=== PATIENT | male | born 1970 | race African-American/Black ===

== ENCOUNTER → 2021-06-13 10:27 | Outpatient (BNVA) | payer SELFPAY | DX: Z01.84 Encounter for antibody response examination (principal) | CPT/HCPCS: 90710 ==

== ENCOUNTER 2024-01-19 13:29 | Emergency (ER) | payer OTHER, SELFPAY ==
--- NOTE | ~2024-01-19 | XR_ITS ---
EXAMINATION: XR CHEST CLINICAL INFORMATION: Right-sided chest pain COMPARISON: None available. TECHNIQUE: 2 views of the chest were obtained. FINDINGS: No significant abnormality is noted involving the heart, lungs, mediastinum, bony thorax or soft tissues. XR/XR chest 2V IMPRESSION: Unremarkable examination. Electronically signed by: Jaleesa Bryant MD 01/19/2024 01:54 PM EDT RP
--- NOTE | 2024-01-19 13:34 | ECG_ITS ---
Test Reason : CHEST PAIN Blood Pressure : / mmHG Vent. Rate : 067 BPM Atrial Rate : 067 BPM P-R Int : 142 ms QRS Dur : 092 ms QT Int : 388 ms P-R-T Axes : 057 009 016 degrees QTc Int : 409 ms Normal sinus rhythm Normal ECG No previous ECGs available Referred By: Sandra Paz Electronically Signed By:CELESTE COELHO
[2024-01-19 13:41] VITALS: BP 163/93; PULSE 67; RESP 18; TEMP 37; O2SAT 97; BMI 33.6
--- NOTE | 2024-01-19 13:44 | ED.CHESTPAIN ---
HPI - Chest Pain General Chief Complaint: Chest Pain Stated Complaint: R chest pain/R arm pain Time Seen by Provider: 01/19/24 16:53 Source: patient Mode of arrival: ambulatory Limitations: no limitations History of Present Illness HPI narrative: Patient is a 53-year-old male who presents emergency department for evaluation of chest pain. He reports onset approximately 72 hours ago. He states that he was sitting up a sol for his daughter including heavy lifting with Tables and putting up a tent. The pain has been constant to the right anterior chest with varying intensity. At times the pain radiates to his right lateral neck and down the right arm with a tingling sensation to the arm. He denies associated shortness of breath, difficulty breathing, dizziness, lightheadedness, headache. He does admit to irregular strength training exercise routine including the chest. He has taken Advil on 1 occasion without much improvement. He was recently diagnosed with hypertension and October of 2023, he is unaware of where his most recent blood pressure readings as he has not been taking it at home and has yet to have a follow-up since starting the medication. Related Data Previous Rx's ?Medication ?Instructions ?Recorded lisinopril 20 mg tablet 20 mg PO DAILY #30 tabs 01/19/24 Allergies Allergy/AdvReac Type Severity Reaction Status Date / Time No Known Allergies Allergy Verified 01/19/24 13:45 Review of Systems Review of Systems: Yes all other systems are reviewed and are negative [facility] Past Medical History Attestation statement: The following information was validated with the patient. Source: old records reviewed Social History Social History Smoked in Last 30 Days: No Use of substances other than those prescribed or required for medical reasons: No Advance Directives: No Advance Directives Information Provided: Yes Do you have a plan to hurt others: No Plan Physical Exam Vital Signs: Vital Signs: Last Vital Signs Temp 98.0 F 01/19/24 17:55 Pulse 55 01/19/24 17:55 Resp 16 01/19/24 17:55 BP 183/100 H 01/19/24 17:55 Pulse Ox 96 01/19/24 17:55 O2 Del Method Room Air 01/19/24 17:55 BMI result Body Mass Index 33.6 Appearance: Alert.?Oriented to person, place and time. No acute distress.?Normal affect. Eyes: Pupils equal, round and reactive to light.? ENT: Pharynx normal.?? Neck: Normal inspection.? Neck supple.?? CVS: Heart sounds normal. Normal heart rate and rhythm.? Pulses normal.?? Respiratory: No respiratory distress.? Lung sounds clear to auscultation bilaterally?? Abdomen: Soft and non-tender. Normoactive bowel sounds. No pulsatile mass.?? Skin: Skin warm and dry.? Normal skin color.? ? Extremities: No lower extremity edema.? Neuro: Moves all extremities spontaneously. Sensation intact bilaterally. No focal neuro deficits. Ambulates with normal steady gait. Course Course Course Narrative: This is a Rapid Medical Examination (RME) performed by Manjula Paz PA-C in triage. Full HPI, ROS, assessment and treatment plan per primary provider in the Main ED. 53 yo male here for eval of constant right sided chest pain x4 days, shooting pain radiating to right neck and down right arm. girlfriend encouraged him to come in today. no trauma/ injury. no hx of similar + RRR. well appearing, not diaphoretic. Plan: ekg, cxr, labs Reevaluation(s) Reevaluation #1: High sensitive troponin elevated 45.3, has already received aspirin. Pending delta troponin. EKG without acute ischemic findings. Reevaluation #2: Delta troponin is flat, 47.4. I reviewed this case with ED attending Dr. Gallagher who agrees this elevation is likely secondary to uncontrolled hypertension. Suspect this is less likely ACS given duration of symptoms, no acute ischemic changes. Plan to increase patient's lisinopril to 20 mg. Advised to keep a record of his blood pressure readings and follow up with his primary care doctor as scheduled. Time: 18:08 Medications Administered Discontinued Medications Generic Name Dose Route Start Last Admin Trade Name Freq PRN Reason Stop Dose Admin Aspirin 324 mg 01/19/24 16:54 01/19/24 17:02 Aspirin 81 Mg Tab.Chew PO 01/19/24 16:55 324 mg ONCE ONE Administration Medical Decision Making Medical Decision Making [facility] Narrative: Patient is a 53-year-old male with past medical history of hypertension who presents to the emergency department for evaluation of chest pain as per HPI. Overall he is well-appearing, nontoxic, afebrile without tachycardia. He is noted to be hypertensive, uncertain where his baseline reading is. Will obtain CBC to evaluate for leukocytosis/ anemia, CMP and lipase to evaluate for abnormal electrolytes /abnormal renal function/ abnormal hepatic/biliary function, EKG and troponin to evaluate for ischemia/ACS. Chest x-ray to evaluate for consolidation/ infiltrate/ mass/ pulmonary congestion and Urinalysis. Patient receive aspirin 324 mg p.o.. Concern for muscular etiology versus ACS based on history. Pain is reproducible upon palpation to the right anterior chest. Wells negative, unlikely PE. Differential Diagnosis Differential Diagnoses: The differential diagnosis associated with the presentation includes (See narrative above ) Admission/Observation Consideration of admission/observation: Escalation of care including admission/observation considered (See narrative above and course narrative for further detail) Lab Data MDM Lab Attestation statement: I reviewed the patient's lab results. CBC is without leukocytosis anemia, very mild thrombocytopenia 157,000. No electrolyte derangement. No FRANK. High sensitive troponin elevated at 45.3 01/19/24 14:52 01/19/24 14:52 Labs: Lab Results 01/19/24 01/19/24 Range/Units 14:52 16:43 WBC 6.5 (4.8-10.8) X10*3/uL RBC 4.82 (4.60-5.80) X10*6/uL Hgb 15.2 (14.0-18.0) g/dl Hct 44.1 (42.0-52.0) % MCV 91.5 (80.0-98.0) fL MCH 31.5 (27.0-33.0) pg MCHC 34.5 (31.0-36.0) g/dl RDW 13.4 (11.0-16.0) % Plt Count 157 L (160-400) X10*3/uL MPV 11.1 (9.4-12.4) fL Immature Gran % (Auto) 0.0 (0.0-0.4) % Neut % (Auto) 58.6 (45-73) % Lymph % (Auto) 30.7 (20-40) % [place] % (Auto) 7.8 (2-11) % Eos % (Auto) 2.0 (0-4) % Baso % (Auto) 0.9 (0-2) % Lymph # (Auto) 2.0 (1.2-4.9) X10*3/uL [place] # (Auto) 0.5 (0.1-1.2) X10*3/uL Eos # (Auto) 0.1 (0.0-0.4) X10*3/uL Baso # (Auto) 0.1 (0.0-0.2) X10*3/uL Abs Immat Gran (auto) 0.00 (0.00-0.03) X10*3/uL Absolute Neuts (auto) 3.8 (2.0-8.3) x10*3/uL Absolute Nucleated RBC 0.000 (0.0-0.012) X10*3/uL Nucleated RBC % (auto) 0.0 (0.0-0.2) /100WBC Sodium 141 (135-145) mmol/L Potassium 4.4 (3.3-5.1) mmol/L Chloride 106 (96-108) mmol/L Carbon Dioxide 26 (22-29) mmol/L Anion Gap 13 (12-20) BUN 12 (9-16) mg/dL Creatinine 0.98 (0.5-1.4) mg/dL Estim Creat Clear Calc 112.1 Estimated GFR > 60 Random Glucose 91 (60-115) mg/dL Calcium 9.8 (8.4-10.2) mg/dL Magnesium 2.1 (1.6-2.6) mg/dL Total Bilirubin 0.6 (0.0-1.0) mg/dL AST 18 (5-37) U/L ALT 20 (0-40) U/L Alkaline Phosphatase 78 (39-117) U/L Troponin I High Sens 45.3 H 47.4 H (<3.5-35.0) ng/L Total Protein 7.6 (6.5-8.0) g/dL Albumin 4.5 (3.5-5.0) g/dL Independent Interpretation I performed an independent interpretation of an: EKG and Plain X-Ray (No Consolidation or infiltrate, no pleural effusion) Interpretation: Rate: 67 Rhythm:? Normal sinus rhythm [place]:? Normal Normal P waves.? Normal [place]TEO.?? Normal QRS complex.?? ST T wave :??No ST elevation, no ST depression, no T-wave inversion qTC: 409 prior studies:? None available for review The study has been interpreted contemporaneously by me. Radiology Impression Discussion of test interpretation with radiology: I have reviewed the radiologist's reading. Radiologist Impression: XR/XR chest 2V IMPRESSION: Unremarkable examination. Discharge Plan Discharge Clinical Impression: Chest pain, Hypertension Patient Disposition: Home, Self-Care Instructions: Chest Pain (ED), How to Take a Blood Pressure (ED), Hypertension (ED) Additional Instructions: Please increase your lisinopril to 20 mg daily. You may take 2 tablets of your current 10 mg supply until you run out. I have sent a new prescription for 20mg to your pharmacy. It is important that you keep a record of your blood pressure readings, ideally 1-2 hours after taking the lisinopril, when you are relaxing and legs are on crossed. This records should be kept written down so that you may follow-up with your primary care doctor and review the readings. You may return back to emergency department any new or worsening symptoms or concerns. Prescriptions: New lisinopril 20 mg tablet 20 mg PO DAILY Qty: 30 0RF Referrals: Martin Rosario MD [Primary Care Provider] - Print Language: Greenlandic
[2024-01-19 14:57] LABS: MANUAL DIFF FLAG NO
[2024-01-19 14:58] LABS: Basophils Absolute Auto 0.1 X10*3/uL (0.0-0.2); Basophils Percent Auto 0.9 % (0-2); Eosinophils Absolute Auto 0.1 X10*3/uL (0.0-0.4); Hematocrit 44.1 % (42.0-52.0); Hemoglobin 15.2 g/dl (14.0-18.0); Lymphocytes Percent Auto 30.7 % (20-40); Mean Corpuscular HGB Conc 34.5 g/dl (31.0-36.0); Mean Corpuscular Hemoglobin 31.5 pg (27.0-33.0); Mean Corpuscular Volume 91.5 fL (80.0-98.0); Mean Platelet Volume 11.1 fL (9.4-12.4); Monocytes Absolute Auto 0.5 X10*3/uL (0.1-1.2); Monocytes Percent Auto 7.8 % (2-11); Neutrophils Absolute Auto 3.8 x10*3/uL (2.0-8.3); Neutrophils Percent Auto 58.6 % (45-73); Platelet Count 157 X10*3/uL (160-400); Red Blood Count 4.82 X10*6/uL (4.60-5.80); Red Cell Distribution Width 13.4 % (11.0-16.0); White Blood Count 6.5 X10*3/uL (4.8-10.8)
[2024-01-19 15:15] LABS: Alanine Aminotransferase 20 U/L (0-40); Albumin Level 4.5 g/dL (3.5-5.0); Alkaline Phosphatase 78 U/L (39-117); Anion Gap 13 (12-20); Aspartate Amino Transferase 18 U/L (5-37); Bilirubin Total 0.6 mg/dL (0.0-1.0); Blood Urea Nitrogen 12 mg/dL (9-16); Calcium 9.8 mg/dL (8.4-10.2); Carbon Dioxide 26 mmol/L (22-29); Chloride 106 mmol/L (96-108); Creatinine Clr Calc Pharmacy 112.1; Estimated Glomerular Filt Rate > 60; Glucose Random 91 mg/dL (60-115); Magnesium 2.1 mg/dL (1.6-2.6); Potassium 4.4 mmol/L (3.3-5.1); Sodium 141 mmol/L (135-145); Total Protein 7.6 g/dL (6.5-8.0)
[2024-01-19 15:23] LABS: Troponin-I High Sensitivity 45.3 ng/L (<3.5-35.0)
[2024-01-19] MEDS: Aspirin 81 MG TAB.CHEW 324 MG PO (17:02)
[2024-01-19 17:09] VITALS: BP 219/116; PULSE 54; RESP 16; O2SAT 100
[2024-01-19 17:22] LABS: Troponin-I High Sensitivity 47.4 ng/L (<3.5-35.0)
[2024-01-19 17:55] VITALS: BP 183/100; PULSE 55; RESP 16; TEMP 36.7; O2SAT 96
[2024-01-19 18:14] VITALS: BP 171/91
[2024-01-19] MEDS: lisinopriL 10 MG TABLET PO (18:14)
[2024-01-19 18:39] VITALS: BP 171/91; PULSE 64; RESP 16; TEMP 36.7; O2SAT 96
== END 2024-01-19 18:40 | disposition home or self-care (01) ==
PROVIDERS: Physician Assistant Medical; Emergency Provider Emergency Medicine; PCP Internal Medicine
DX: R07.9 Chest pain, unspecified (principal); I10 Essential (primary) hypertension
CPT/HCPCS: 36415; 71046; 80053; 83735; 84484; 85025; 93005; 99283; 99285